=== PATIENT | female | born 1980 | race Caucasian/White ===

== ENCOUNTER → 2019-07-03 17:20 | Outpatient (CLI) | payer BC, SELFPAY | PROVIDERS: Visit Provider Nurse Practitioner Obstetrics & Gynecology | DX: Z01.419 Encounter for gynecological examination (general) (routine) without abnormal findings (principal); N39.0 Urinary tract infection, site not specified | CPT/HCPCS: 87086; 87088; 87186 ==

== ENCOUNTER → 2019-11-22 15:06 | Outpatient (CLI) | payer BC, SELFPAY ==
[2019-11-22 16:25] LABS: Alanine Aminotransferase 61 U/L (12-78); Albumin Level 4.2 g/dl (3.5-5.0); Albumin/Globulin Ratio 0.9 (1.1-1.8); Alkaline Phosphatase 234 U/L (38-126); Aspartate Amino Transferase 124 U/L (14-36); Bilirubin,Total 9.1 mg/dl (0.2-1.3); Blood Urea Nitrogen 24 mg/dl (7-17); Calcium 10.3 mg/dl (8.4-10.2); Carbon Dioxide 26 mmol/L (22.0-30.0); Chloride 98 mmol/L (98-107); Estimated Glomerular Filt Rate 79 ml/min (>60); GFR (African American) 96 ML/MIN (>60); Globulin 4.7 g/dL (1.3-3.2); Glucose 101 mg/dl (74-100); Sodium 136 mmol/L (136-145); Total Protein,Serum 8.9 g/dl (6.3-8.2)
== END ==
PROVIDERS: Visit Provider Internal Medicine
DX: K70.11 Alcoholic hepatitis with ascites (principal)
CPT/HCPCS: 36415; 80053

== ENCOUNTER → 2021-03-09 18:08 | Outpatient (CLI) | payer BC, SELFPAY ==
[2021-03-09 19:01] LABS: Anion Gap 9.5 mEq/L (5-15); Blood Urea Nitrogen 11 mg/dl (7-17); Calcium 8.9 mg/dl (8.4-10.2); Carbon Dioxide 24 mmol/L (22.0-30.0); Chloride 107 mmol/L (98-107); Estimated Glomerular Filt Rate 110 ml/min (>60); GFR (African American) 133 ML/MIN (>60); Glucose 79 mg/dl (74-100); Potassium 4.5 mmoL/L (3.5-5.1); Sodium 136 mmol/L (136-145)
== END ==
PROVIDERS: Visit Provider Internal Medicine
DX: R60.9 Edema, unspecified (principal)
CPT/HCPCS: 80048

== ENCOUNTER 2021-05-29 11:20 | Emergency (ER) | payer BC, SELFPAY ==
[2021-05-29] VITALS (9 sets, daily range): BP systolic 101–170; BP diastolic 69–100; PULSE 81–107; RESP 12–20; TEMP 36.6–36.9; O2SAT 95–100; BMI 23.6
--- NOTE | 2021-05-29 11:57 | XR_ITS ---
PROCEDURE INFORMATION: Exam: XR Chest Exam date and time: 05/29/2021 11:57 AM Age: 40 years old Clinical indication: Injury or trauma; Fall; Blunt trauma (contusions or hematomas); Injury date: 05/29/21; Additional info: Altered mental status and had a fall TECHNIQUE: Imaging protocol: XR of the chest. Views: 1 view. COMPARISON: CR CXR CHEST(2 VIEWS-NOT PORTABLE) 09/09/2016 2:33 PM FINDINGS: Airway: Patent Lungs: Unremarkable. No consolidation. Pleural spaces: Unremarkable. No pleural effusion. No pneumothorax. Heart/Mediastinum: Unremarkable. No cardiomegaly. Bones/joints: No acute skeletal abnormality or aggressive osseous lesion. IMPRESSION: No acute findings.
--- NOTE | 2021-05-29 11:59 | CT_ITS ---
PROCEDURE INFORMATION: Exam: CT Abdomen And Pelvis With Contrast Exam date and time: 05/29/2021 11:59 AM Age: 40 years old Clinical indication: Other: AMS and fell onto pelvis, hi, knee; Additional info: AMS, passed out and fell onto right hip, pelvis and knee TECHNIQUE: Imaging protocol: Computed tomography of the abdomen and pelvis with contrast. Radiation optimization: All CT scans at this facility use at least one of these dose optimization techniques: automated exposure control; mA and/or kV adjustment per patient size (includes targeted exams where dose is matched to clinical indication); or iterative reconstruction. Contrast material: ISOVUE; Contrast volume: 75 ml; Contrast route: IV; COMPARISON: ABDPELW CT ABD PELVIS W/ CONTRAST 04/22/2016 10:37 AM FINDINGS: Lungs: There is subpleural atelectasis of the dependent portions of the lungs. No acute interstitial or airspace disease. Liver: The liver has a nodular contour and there is relative hypertrophy of the caudate lobe, consistent with cirrhosis. New 6.6 cm x 5.9 cm x 3.9 cm heterogeneous hypodense structure/lesion involving segment Madai and segment VIII (image 24 series 4 and image 26 series 10/). The lesion is causing significant capsular retraction and architectural distortion at this level. Periportal varices. Gallbladder and bile ducts: Prior cholecystectomy. There is no evidence of biliary ductal dilation. Pancreas: Normal. No ductal dilation. Spleen: Perisplenic varices. There is nonspecific splenomegaly, measuring 13 cm. The spleen is otherwise unremarkable. Adrenal glands: Normal. No mass. Kidneys and ureters: Normal. No hydronephrosis. Stomach and bowel: Mild diffuse colonic wall thickening and submucosal fat deposition. No other definitive segmental bowel wall thickening is appreciated. No bowel obstruction. Appendix: Normal appendix. Intraperitoneal space: There is a small amount of free intraperitoneal fluid present. There is no free intraperitoneal air. Vasculature: Recanalization of the umbilical vein. Perigastric varices. Periesophageal varices. Eccentrically localized filling defect in the main portal vein, portal confluence, and partially extending to the proximal segments of the SMV (images 30-45 series 4). This is most in favor with a nonocclusive thrombus. Distension and engorgement of the left gonadal vein. The vasculature demonstrates diffuse mild atherosclerotic calcification. Lymph nodes: No retroperitoneal, pelvic, or mesenteric adenopathy. Urinary bladder: The bladder is decompressed. Reproductive: Unremarkable as visualized. Bones/joints: Chronic superior endplate compression fractures at T10 and T11 with approximately 40% loss in vertebral body height. No other acutely displaced fractures are identified. There is no evidence of joint dislocation. No aggressive osseous lesions. Soft tissues: Calcified injection granulomas are noted in the subcutaneous tissues of the buttocks. IMPRESSION: 1. Cirrhosis and mildly decompensated portal hypertension. 2. Diffuse vascular sequela of portal hypertension. 3. Eccentric nonocclusive thrombus within the main portal vein and extending towards the portal confluence and proximal segments of the SMV. 4. 6.6 cm x 5.9 cm x 3.9 cm liver lesion involving segment IV a and segment VIII, highly concerning for hepatocellular carcinoma in this patient with underlying cirrhosis. 5. Differential diagnosis for colonic findings would include: Combination of portal colopathy and chronic submucosal fat deposition versus mild infectious/inflammatory colitis in the appropriate clinical setting. 6. Incidental findings as above. CO
--- NOTE | 2021-05-29 11:59 | CT_ITS ---
PROCEDURE INFORMATION: Exam: CT Head Without Contrast Exam date and time: 05/29/2021 11:59 AM Age: 40 years old Clinical indication: Altered mental status/memory loss; Confusion or disorientation; Additional info: AMS and patient fell onto hip, knee on right side TECHNIQUE: Imaging protocol: Computed tomography of the head without contrast. Radiation optimization: All CT scans at this facility use at least one of these dose optimization techniques: automated exposure control; mA and/or kV adjustment per patient size (includes targeted exams where dose is matched to clinical indication); or iterative reconstruction. COMPARISON: No relevant prior studies available. FINDINGS: Brain: Normal. No hemorrhage. Unremarkable white matter. No mass effect. Cerebral ventricles: No ventriculomegaly. Paranasal sinuses: Visualized sinuses are unremarkable. No fluid levels. Mastoid air cells: Visualized mastoid air cells are well aerated. Bones/joints: Unremarkable. No acute fracture. Soft tissues: Unremarkable. IMPRESSION: No acute intracranial abnormality.
--- NOTE | 2021-05-29 11:59 | XR_ITS ---
PROCEDURE INFORMATION: Exam: XR Right Hip Exam date and time: 05/29/2021 11:59 AM Age: 40 years old Clinical indication: Injury or trauma; Fall; Blunt trauma (contusions or hematomas); Right; Injury date: 05/29/21; Patient HX: Lateral hip/femur in the knee pictures TECHNIQUE: Imaging protocol: XR Right hip. Views: 2 or 3 views hip with pelvis when performed. COMPARISON: CT ABDOMEN PELVIS W CON 05/29/2021 1:23 PM FINDINGS: Bones/joints: Osseous anatomic alignment is well preserved. No acutely displaced fracture or dislocation. Joint spaces are well preserved. Soft tissues: There is no significant soft tissue swelling. Organs: Contrast material layers in the urinary bladder and is partially seen in the distal left ureter. IMPRESSION: No acute skeletal pathology.
--- NOTE | 2021-05-29 11:59 | XR_ITS ---
PROCEDURE INFORMATION: Exam: XR Right Knee Exam date and time: 05/29/2021 11:59 AM Age: 40 years old Clinical indication: Injury or trauma; Fall; Blunt trauma; Knee; Right; Injury date: 05/29/21 TECHNIQUE: Imaging protocol: XR Right knee. Views: 1 or 2 views. COMPARISON: CR FTR3 FOOT-RT-3 VIEWS 12/10/2014 2:16 PM FINDINGS: Bones/joints: Osseous anatomic alignment is well preserved. No acutely displaced fracture or dislocation. Joint spaces are well preserved. Soft tissues: Anterior knee swelling. IMPRESSION: 1. Anterior knee swelling. 2. No acute skeletal pathology.
--- NOTE | 2021-05-29 12:00 | [facility].EDGENADL ---
ED Disposition Clinical Impression: Liver mass, Hyperbilirubinemia, Portal vein thrombosis, Hallucinations Disposition: Home, Self-Care Condition on Discharge: Fair Instructions: DI for Altered Mental Status Prescriptions: Lactulose [Lactulose 20gm/30ml Oral Soln] 20 gm PO DAILYP PRN 10 Days #1200 ml PRN Reason: 3-4x soft stools per day Transmission Status: Pending to [facility] Referrals: Elliott Leggett [Primary Care Provider] - - Critical Care Critical Care Time: No Attestation: On 05/29/21, the high probability of a clinically significant, sudden or life threatening deterioration of the following system(s) required my full and direct attention, intervention and personal management. The time I documented below is in addition to time spent performing reported procedures but includes the following listed in this critical care notation. Medical Decision Making - Bony Inquiry Pt receiving controlled substance: Yes Bony was queried for this patient: No Risks and benefits of using a controlled substance: were not discussed with pt by me Vital Signs: 05/29/21 11:20 05/29/21 11:30 05/29/21 12:00 Temperature 98.4 F Temperature Source Oral Pulse Rate 94 H 95 H Pulse Rate [Left Radial] 107 H Respiratory Rate 20 12 16 Blood Pressure 145/94 H 170/100 H Blood Pressure [Right Arm] 134/92 H Blood Pressure Mean Blood Pressure Mean [Right Arm] 106 Blood Pressure Source [Right Arm] Automatic Cuff Blood Pressure Position [Right Arm] Sitting 02 Sat by Pulse Oximetry 96 100 99 Oxygen Delivery Method Room Air 05/29/21 12:31 05/29/21 13:00 05/29/21 14:00 Temperature Temperature Source Pulse Rate 92 H 87 89 Pulse Rate [Left Radial] Respiratory Rate 15 13 Blood Pressure 125/88 118/79 107/69 L Blood Pressure [Right Arm] Blood Pressure Mean Blood Pressure Mean [Right Arm] Blood Pressure Source [Right Arm] Blood Pressure Position [Right Arm] 02 Sat by Pulse Oximetry 95 98 Oxygen Delivery Method 05/29/21 14:11 05/29/21 14:30 Temperature Temperature Source Pulse Rate 81 89 Pulse Rate [Left Radial] Respiratory Rate 14 14 Blood Pressure 107/69 L 101/73 L Blood Pressure [Right Arm] Blood Pressure Mean 81 81 Blood Pressure Mean [Right Arm] Blood Pressure Source [Right Arm] Blood Pressure Position [Right Arm] 02 Sat by Pulse Oximetry 99 98 Oxygen Delivery Method - Lab Data Lab Results 05/29/21 11:32: Lactate 1.0 05/29/21 11:32: Ammonia 42 H 05/29/21 11:37: WBC 3.5 L, RBC 2.84 L, Hgb 9.9 L, Hct 31.5 L, MCV 111.0 H, MCH 34.9 H, MCHC 31.5 L, RDW 14.9, Plt Count 49 L*, MPV 9.8, Neut % (Auto) 57.9, Lymph % (Auto) 34.3, [place] % (Auto) 5.1, Eos % (Auto) 2.2, Baso % (Auto) 0.6, Neut # (Auto) 2.0, Lymph # (Auto) 1.2, [place] # (Auto) 0.2, Eos # (Auto) 0.1, Baso # (Auto) 0.0 05/29/21 11:37: Sodium 133 L, Potassium 3.3 L, Chloride 109 H, Carbon Dioxide 21 L, Anion Gap 6.3, BUN 12, Creatinine 0.70, Estimated Creat Clear 121, Estimated GFR 92, Est GFR ( Amer) 112, Glucose 82, Calcium 7.7 L, Total Bilirubin 5.2 H, Direct Bilirubin 2.8 H, Conjugated Bilirubin 0.4 H, Indirect Bilirubin 2.4 H, Unconjugated Bilirubin 2.5 H, AST 89 H, ALT 19, Alkaline Phosphatase 198 H, Total Protein 7.0, Albumin 3.1 L, Globulin 3.9 H, Albumin/Globulin Ratio 0.8 L 05/29/21 11:37: Serum HCG, Qual Negative Result diagrams: 05/29/21 11:37 05/29/21 11:37 Orders (Tests/Meds): ED MEDICATIONS Generic Name Dose Route Start Last Admin Trade Name Freq PRN Reason Stop Dose Admin Sodium Chloride 10 ml 05/29/21 11:57 Sodium Chloride 0.9% 10ml Flush Syringe IV 06/28/21 11:56 NEEDED PRN Maintain IV Site Discontinued Medications Generic Name Dose Route Start Last Admin Trade Name Freq PRN Reason Stop Dose Admin Iopamidol 75 ml 05/29/21 13:35 05/29/21 13:35 Iopamidol-370 (76%);100ml Bottle IV 05/29/21 13:36 75 ml ONCE ONE Administration
--- NOTE | 2021-05-29 12:11 | XR_ITS ---
PROCEDURE INFORMATION: Exam: XR Right Femur Exam date and time: 05/29/2021 12:11 PM Age: 40 years old Clinical indication: Injury or trauma; Fall; Blunt trauma; Knee; Right; Injury date: 05/29/21; Additional info: Pain after fall TECHNIQUE: Imaging protocol: XR Right femur. Views: 2 views. COMPARISON: CT ABDOMEN PELVIS W CON 05/29/2021 1:23 PM FINDINGS: Bones/joints: Unremarkable. No acute fracture. Soft tissues: Unremarkable. IMPRESSION: No acute findings.
[2021-05-29 12:12] LABS: Chloride 109 mmol/L (98-107); Potassium 3.3 mmoL/L (3.5-5.1); Sodium 133 mmol/L (136-145)
[2021-05-29 12:14] LABS: Blood Urea Nitrogen 12 mg/dl (7-17); Creatinine Clearance Estimated 121 mL/min (50-200); Estimated Glomerular Filt Rate 92 ml/min (>60); GFR (African American) 112 ML/MIN (>60)
[2021-05-29 12:15] LABS: Alanine Aminotransferase 19 U/L (12-78); Albumin Level 3.1 g/dl (3.5-5.0); Albumin/Globulin Ratio 0.8 (1.1-1.8); Alkaline Phosphatase 198 U/L (38-126); Anion Gap 6.3 mEq/L (5-15); Aspartate Amino Transferase 89 U/L (14-36); Bilirubin, Conjugated 0.4 mg/dL (0.0-0.3); Bilirubin,Direct 2.8 mg/dl (0.0-0.4); Bilirubin,Indirect 2.4 mg/dL (0.0-0.9); Bilirubin,Total 5.2 mg/dl (0.2-1.3); Bilirubin,Unconjugated 2.5 mg/dL (0.0-1.1); Calcium 7.7 mg/dl (8.4-10.2); Carbon Dioxide 21 mmol/L (22.0-30.0); Globulin 3.9 g/dL (1.3-3.2); Glucose 82 mg/dl (74-100)
[2021-05-29 12:23] LABS: Basophils % 0.6 % (0.1-2.0); Eosinophils # 0.1 K/mm3 (0.0-0.4); Eosinophils % 2.2 % (0.1-12.0); Hematocrit 31.5 % (37.0-47.0); Hemoglobin 9.9 g/dL (12.2-16.2); Lymphocytes # 1.2 K/mm3 (0.7-4.5); Lymphocytes % 34.3 % (10-50); Mean Corpuscular HGB Conc 31.5 g/dL (31.8-35.4); Mean Corpuscular Hemoglobin 34.9 pg (27.0-31.2); Mean Platelet Volume 9.8 fl (7.4-10.4); Monocytes # 0.2 K/mm3 (0.1-1.0); Monocytes % 5.1 % (1.7-9.3); Neutrophils % 57.9 % (37.0-80.0); Red Blood Count 2.84 M/mm3 (4.20-5.40); Red Cell Distribution Width 14.9 % (11.5-17.5); White Blood Count 3.5 K/mm3 (4.8-10.8)
[2021-05-29 12:24] LABS: Ammonia 42 umol/L (9-30)
[2021-05-29 12:33] LABS: Platelet Count 49 K/mm3 (142-424)
[2021-05-29 13:09] LABS: HCG Qualitative, Serum Negative (Negative)
--- NOTE | 2021-05-29 13:20 | PC.NURSE ---
pt to rad
--- NOTE | 2021-05-29 13:49 | PC.NURSE ---
Pt returned from rad.
== END 2021-05-29 16:03 | disposition home or self-care (01) ==
PROVIDERS: Emergency Provider Student in an Organized Health Care Education/Training Program; PCP Internal Medicine
DX: R44.3 Hallucinations, unspecified (principal); K70.30 Alcoholic cirrhosis of liver without ascites; R16.0 Hepatomegaly, not elsewhere classified; I81 Portal vein thrombosis; E80.6 Other disorders of bilirubin metabolism; M25.562 Pain in left knee; Z79.899 Other long term (current) drug therapy
CPT/HCPCS: 70450; 71045; 73502; 73552; 73560; 74177; 80053; 80076; 82140; 83605; 84703; 85025; 99283; 99284; C9803; J2405; Q9967; U0003; U0005

== ENCOUNTER → 2021-06-01 14:46 | Outpatient (CLI) | payer BC, SELFPAY ==
--- NOTE | 2021-06-01 | CA_ITS ---
FINAL REPORT TECHNIQUE: Grayscale and color Doppler ultrasound images with graded compression of the deep venous system were obtained from the groin to the calf veins bilaterally. CLINICAL HISTORY: .Unhealing wounds skin lesions x 1 month, Varicosities, Smoker FINDINGS: The deep venous system is normal. There is no evidence of DVT. Flow and compressibility are normal. IMPRESSION: No evidence of left or right lower extremity DVT. Reviewed, Interpreted and Dictated by Arnol Garcia MD Transcribed by Rufus Hinson Authenticated by Arnol Garcia MD on 06/01/2021 04:18:23 PM [facility]
== END ==
PROVIDERS: PCP Internal Medicine; Visit Provider Internal Medicine
DX: M79.605 Pain in left leg (principal); M79.604 Pain in right leg; R60.0 Localized edema
CPT/HCPCS: 93970